=== PATIENT | female | born 1960 | race Caucasian/White ===

== ENCOUNTER 2017-04-30 20:55 | Emergency (ER) | payer OTHER ==
[2017-04-30 22:28] VITALS: BP 113/57
[2017-04-30] MEDS ORDERED: Benzonatate CAP* 100 MG PO ONE (23:03)
[2017-04-30] MEDS ORDERED: DOXYcycline CAP(*) 100 MG PO ONE (23:03)
--- NOTE | 2017-04-30 23:09 | UC ---
Respiratory Complaint HPI - HPI Summary HPI Summary: 57 y/o female presents to the urgent care c/o persistent cough for the past 3 weeks. She reports her symptoms started with her seasonal allergies with nasal congestion and postnasal drip, but then the cough started and now is producing a green phlegm, has Mild SOB and every time she coughs she urinates. She has only use her albuterol inhaler to alleviate symptoms. PT denies fever, chest pain, N/V/D. - History of Current Complaint Chief Complaint: UCRespiratory Stated Complaint: CHEST CONGESTION, COUGH Time Seen by Provider: 04/30/17 22:44 Hx Obtained From: Patient Hx Last Menstrual Period: years ago. ?: No Onset/Duration: Gradual Onset, Lasting Weeks, Still Present Timing: Intermittent Episodes Severity Initially: Mild Severity Currently: Moderate Pain Intensity: 0 Pain Scale Used: 0-10 Numeric Character: Cough: Productive - with green phlegm Alleviating Factors: Bronchodilator Associated Signs And Symptoms: Positive: Dyspnea, Nasal Congestion. Negative: Fever Related History: Seasonal Allergies - Risk Factors Pulmonary Embolism Risk Factors: Negative Cardiac Risk Factors: Hypertension, Smoking, Diabetes Pseudomonas Risk Factors: Negative Tuberculosis Risk Factors: Negative - Allergies/Home Medications Allergies/Adverse Reactions: Allergies Allergy/AdvReac Type Severity Reaction Status Date / Time Penicillins Allergy Intermediate Rash Verified 04/30/17 22:28 Home Medications: Home Medications Metoprolol Tartrate TAB* [Lopressor TAB*] 25 mg PO DAILY 04/30/17 [History Confirmed 04/30/17] PMH/Surg Hx/FS Hx/Imm Hx Previously Healthy: Yes Endocrine History: Diabetes, Dyslipidemia Cardiovascular History: Hypertension Respiratory History: COPD Psychological History: Anxiety Other History Of: Anticoagulant Therapy - aspirin Negative For: HIV, Hepatitis B, Hepatitis C - Surgical History Surgical History: Yes Surgery Procedure, Year, and Place: BI-LAT CARPEL TUNNEL SURGERY. TUBAL LIGATION. LEFT BREAST MASS REMOVED- benign. B/L SHOULDER SX. R TKA--2017 - Family History Known Family History: Positive: None, Cardiac Disease - parents, Hypertension - mother, Diabetes - mother - Social History Occupation: Unemployed Lives: With Family Alcohol Use: None Substance Use Type: None Smoking Status (MU): Heavy Every Day Tobacco Smoker Type: Cigarettes Amount Used/How Often: ~ 1 ppd Length of Time of Smoking/Using Tobacco: started ~ age 14 Have You Smoked in the Last Year: Yes Review of Systems Constitutional: Negative Skin: Negative Eyes: Negative ENT: Nasal Discharge, Sinus Congestion Respiratory: Shortness Of Breath, Cough - productive with green sputum Cardiovascular: Negative, Palpitations Genitourinary: Negative Motor: Negative Neurovascular: Negative Musculoskeletal: Negative Neurological: Negative Psychological: Negative All Other Systems Reviewed And Are Negative: Yes Physical Exam Triage Information Reviewed: Yes Appearance: Well-Appearing, No Pain Distress, Well-Nourished, Obese Vital Signs: Initial Vital Signs Temp 99.1 F 04/30/17 22:19 Pulse 89 04/30/17 22:19 Resp 20 04/30/17 22:19 BP 113/57 04/30/17 22:19 Pulse Ox 95 04/30/17 22:19 Vital Signs Reviewed: Yes Eyes: Positive: Conjunctiva Clear - PERRLA, EOMI, Fundi grossly normal ENT: Positive: Normal ENT inspection, Hearing grossly normal, Pharynx normal, TMs normal - RT ear canal impacted with cerumen unable to visualize TM. LF TM pearly in color with positive light relfex.. Negative: Tonsillar swelling, Tonsillar exudate Dental Exam: Normal Neck exam: Normal Neck: Positive: Supple, Nontender, No Lymphadenopathy Respiratory Exam: Normal Respiratory: Positive: Chest non-tender, No respiratory distress, No accessory muscle use, Wheezing - B/L wheezing in the upper lung mohr Cardiovascular Exam: Normal Cardiovascular: Positive: RRR, No Murmur, Pulses Normal Abdominal Exam: Normal Abdomen Description: Positive: Nontender, No Organomegaly, Soft. Negative: CVA Tenderness (R), CVA Tenderness (L) Bowel Sounds: Positive: Present Musculoskeletal Exam: Normal Musculoskeletal: Positive: Strength Intact, ROM Intact, No Edema Neurological Exam: Normal Psychological Exam: Normal Skin Exam: Normal UC Diagnostic Evaluation - Laboratory O2 Sat by Pulse Oximetry: 95 Respiratory Course/Dx - Course Course Of Treatment: 57 y/o female presents to the urgent care c/o persistent cough for the past 3 weeks. Pt with HX of COPD. Hx obtained. PE abnormal findings: Respiratory: Positive: Chest non-tender, No respiratory distress, No accessory muscle use, Wheezing - B/L wheezing in the upper lung mohr. Pt decline chest x-ray. Pt given Doxycycline 100mg PO once and tessalon tab 100mg PO at the urgent care since pharmacy is closed. Rx antibiotic for 10 days and advised to take the tessalon tabs and continue using her albuterol inhaler q4hrs prn to alleviate bronchospasm. Increase fluid intake and if symptoms do not improve to f/u with her PCP for furhter evaluation and treatment. Pt understood and agreed. - Differential Dx/Diagnosis Differential Diagnosis/HQI/PQRI: Bronchitis, Exacerbation Of COPD, Lower Resp Infection, Sinusitis, Other - Pharyngitis, sinusitis Provider Diagnoses: COPD exacerbation. - Physician Notification/Consults Discussed Patient Care With: Ramón Patrick - Dr patrick agreed with pt's care and treatment. Discharge - Discharge Plan Condition: Stable Disposition: HOME Prescriptions: Benzonatate CAP* [Tessalon 100 MG CAP*] 100 mg PO TID #21 cap Carbamide Peroxide 6.5% OTIC* [DEBROX 6.5% Otic*] 5 drop RIGHT EAR BID #1 bottle DOXYcycline CAP(*) [DOXYcycline 100MG CAP(*)] 100 mg PO BID #20 cap Patient Education Materials: COPD (Chronic Obstructive Pulmonary Disease) (ED) Referrals: Raymundo Vizcaino MD [Primary Care Provider] - 1 Week Additional Instructions: Please take medications as instructed and finish the full course of treatment to avoid recurrent infection. Continue to use the albuterol inhaler q4hrs prns to alleviate broncospasm. If you do not improve or if symptoms worsen after the course of antibiotics, you should either follow up with your PCP or return to the urgent care for further evaluation and treatment.
== END 2017-04-30 23:16 | disposition home or self-care (01) ==
LOC: UCCORT 20:55
DX: J44.1 Chronic obstructive pulmonary disease with (acute) exacerbation (principal); E11.9 Type 2 diabetes mellitus without complications; I10 Essential (primary) hypertension; E78.5 Hyperlipidemia, unspecified; Z72.0 Tobacco use
CPT/HCPCS: 99212; A9270-GY; G0463

== ENCOUNTER 2017-06-03 09:39 | Emergency (ER) | payer OTHER ==
[2017-06-03 10:14] VITALS: BP 119/67
--- NOTE | 2017-06-03 10:25 | UC ---
Lower Extremity/Ankle HPI - HPI Summary HPI Summary: she was walking on her uneven driveway and stepped and felt sudden pain in the middle of her foot. She did not fall. this was last night. - History of Current Complaint Chief Complaint: UCLowerExtremity Stated Complaint: RIGHT FOOT INJURY Time Seen by Provider: 06/03/17 10:13 Hx Obtained From: Patient Hx Last Menstrual Period: years ago. Onset/Duration: Sudden Onset, Lasting Days Severity Initially: Moderate Severity Currently: Moderate Aggravating Factor(s): Standing, Ambulation Alleviating Factor(s): Rest, Elevation Able to Bear Weight: No - Risk Factors Gout Risk Factors: Age Over 40 - Allergies/Home Medications Allergies/Adverse Reactions: Allergies Allergy/AdvReac Type Severity Reaction Status Date / Time Penicillins Allergy Intermediate Rash Verified 06/03/17 10:04 Home Medications: Home Medications Ibuprofen TAB* [Motrin TAB* 800 MG] 800 mg PO Q6H 06/03/17 [History Confirmed ] PMH/Surg Hx/FS Hx/Imm Hx Previously Healthy: No - arthritis. Other History Of: Anticoagulant Therapy - aspirin Negative For: HIV, Hepatitis B, Hepatitis C - Surgical History Surgical History: Yes Surgery Procedure, Year, and Place: BI-LAT CARPEL TUNNEL SURGERY. TUBAL LIGATION. LEFT BREAST MASS REMOVED- benign. B/L SHOULDER SX. R TKA--2017 - Family History Known Family History: Positive: None, Cardiac Disease - parents, Hypertension - mother, Diabetes - mother - Social History Alcohol Use: None Substance Use Type: None Smoking Status (MU): Heavy Every Day Tobacco Smoker Type: Cigarettes Amount Used/How Often: ~ 1 ppd Length of Time of Smoking/Using Tobacco: started ~ age 14 Have You Smoked in the Last Year: Yes Review of Systems Musculoskeletal: Arthralgia All Other Systems Reviewed And Are Negative: Yes Physical Exam Triage Information Reviewed: Yes Appearance: Well-Appearing, Well-Nourished Vital Signs: Initial Vital Signs Temp 98.9 F 06/03/17 09:59 Pulse 65 06/03/17 09:59 Resp 14 06/03/17 09:59 BP 119/67 06/03/17 09:59 Pulse Ox 97 06/03/17 09:59 Vital Signs Reviewed: Yes Eye Exam: Normal ENT Exam: Normal Neck exam: Normal Respiratory Exam: Normal Cardiovascular Exam: Normal Abdominal Exam: Normal Musculoskeletal Exam: Other - Right foot pain mid metatarsal tenderness without swelling. no ankle tenderness. Neurological Exam: Normal Neurological: Positive: Alert Psychological Exam: Normal Skin Exam: Normal Lower Extremity Course/Dx - Course Course Of Treatment: right foot sprain. no evidence of fracture on x ray. she will use post op shoe and tylenol PRN. - Differential Dx/Diagnosis Provider Diagnoses: right foot injury and sprain. Discharge - Discharge Plan Condition: Good Disposition: HOME Patient Education Materials: Arthralgia (ED) Referrals: Raymundo Vizcaino MD [Primary Care Provider] - If Needed
--- NOTE | 2017-06-03 10:46 | RAD ---
Indication: Plantar side RIGHT foot pain following injury/rolled foot yesterday. Comparison: No relevant prior exams available on the [facility] PACS for comparison. Technique: AP, lateral, and oblique views RIGHT foot. Report: Negative for fracture or dislocation. 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 Small Achilles tendon insertion and plantar fascia origin bone spurs. Mild nonfocal soft tissue swelling. IMPRESSION: Nonfocal soft tissue swelling. Negative for fracture or malalignment. Osteoarthritis.
== END 2017-06-03 11:11 | disposition home or self-care (01) ==
LOC: UCCORT 09:39
DX: S93.601A Unspecified sprain of right foot, initial encounter (principal); X58.XXXA Exposure to other specified factors, initial encounter; Y93.01 Activity, walking, marching and hiking; Y92.412 Parkway as the place of occurrence of the external cause; Z79.82 Long term (current) use of aspirin; Z88.0 Allergy status to penicillin; F17.210 Nicotine dependence, cigarettes, uncomplicated
CPT/HCPCS: 99213; G0463

== ENCOUNTER 2017-12-03 17:24 | Emergency (ER) | payer OTHER ==
[2017-12-03 21:06] VITALS: BP 98/55
[2017-12-03] MEDS ORDERED: Oseltamivir CAP* 75 MG CAP PO ONE (21:26)
--- NOTE | 2017-12-03 21:27 | UC ---
HPI Febrile Illness - HPI Summary HPI Summary: 57 year old female with flu like illness since 0300 today. Onset yesterday with fatigue. woke in the night with nausea and vomiting , diarrhea. Coughing. Fever 103 in the night. Last time she vomited was two hours ago. Tolerating fluids ok now. drinking a lot of fluids. has had body aches as well. (+) exposure to flu at home [ End ] - History of Current Complaint Chief Complaint: UCGeneralIllness Time Seen by Provider: 12/03/17 21:00 Hx Obtained From: Patient Hx Last Menstrual Period: years ago. Pain Intensity: 0 Associated Signs and Symptoms: Arthralgia, Chills, Cough - Allergy/Home Medications Allergies/Adverse Reactions: Allergies Allergy/AdvReac Type Severity Reaction Status Date / Time MS Penicillins [Penicillins] Allergy Intermediate Rash Verified 12/03/17 20:52 Home Medications: Home Medications Acetaminophen TAB* [Tylenol TAB*] 650 mg PO Q4H PRN 12/03/17 [History Confirmed 12/03/17] Hydroxychloroquine TAB* [Plaquenil TAB*] 200 mg PO BID 12/03/17 [History Confirmed 12/03/17] Meloxicam 7.5 mg PO DAILY 12/03/17 [History Confirmed 12/03/17] PMH/Surg Hx/FS Hx/Imm Hx Previously Healthy: Yes Endocrine History: Diabetes Cardiovascular History: Hypertension Other History Of: Anticoagulant Therapy - aspirin Negative For: HIV, Hepatitis B, Hepatitis C - Surgical History Surgical History: Yes Surgery Procedure, Year, and Place: BI-LAT CARPEL TUNNEL SURGERY. TUBAL LIGATION. LEFT BREAST MASS REMOVED- benign. B/L SHOULDER SX. R TKA--2017 - Family History Known Family History: Positive: None, Cardiac Disease - parents, Hypertension - mother, Diabetes - mother - Social History Lives: With Family Alcohol Use: None Substance Use Type: None Smoking Status (MU): Heavy Every Day Tobacco Smoker Type: Cigarettes Amount Used/How Often: ~ 1 ppd Length of Time of Smoking/Using Tobacco: started ~ age 14 Have You Smoked in the Last Year: Yes Household Exposure Type: Cigarettes Review of Systems Constitutional: Fever, Chills, Fatigue ENT: Sore Throat, Nasal Discharge, Sinus Congestion Respiratory: Cough Musculoskeletal: Myalgia Neurological: Headache All Other Systems Reviewed And Are Negative: Yes Physical Exam Triage Information Reviewed: Yes Appearance: Well-Appearing, No Pain Distress, Well-Nourished Vital Signs: Initial Vital Signs Temp 98.7 F 12/03/17 20:58 Pulse 67 12/03/17 20:58 Resp 16 12/03/17 20:58 BP 98/55 12/03/17 20:58 Pulse Ox 95 12/03/17 20:58 Vital Signs Reviewed: Yes Eye Exam: Normal ENT Exam: Normal Dental Exam: Normal Neck exam: Normal Neck: Positive: 1 Respiratory Exam: Normal Cardiovascular Exam: Normal Musculoskeletal Exam: Normal Neurological Exam: Normal Psychological Exam: Normal Skin Exam: Normal Course/Dx - Course Course Of Treatment: flu like sx , immunocompromised and (+) to flu at home -- treat, RTO if any concerns, appears to be well hydrated, MMM. if any vomiting after leaving here or concerns for dehydration to go to ED for potential fluids - Diagnoses Clinic Provider Diagnoses: Flu Discharge - Discharge Plan Condition: Good Disposition: HOME Prescriptions: Benzonatate [TESSALON 200 MG CAP] 200 mg PO TID PRN #20 cap PRN Reason: Cough Oseltamivir CAP* [Tamiflu CAP*] 75 mg PO BID #10 cap Patient Education Materials: Influenza (ED) Forms: *Work Release Referrals: Raymundo Vizcaino MD [Primary Care Provider] - 1 Day
== END 2017-12-03 21:39 | disposition home or self-care (01) ==
LOC: UCCORT 17:24
DX: J11.1 Influenza due to unidentified influenza virus with other respiratory manifestations (principal); Z88.0 Allergy status to penicillin; E11.9 Type 2 diabetes mellitus without complications; I10 Essential (primary) hypertension; Z79.82 Long term (current) use of aspirin; F17.210 Nicotine dependence, cigarettes, uncomplicated
CPT/HCPCS: 87502; 99212; A9270-GY; G0463

== ENCOUNTER 2018-01-06 16:38 | Emergency (ER) | payer OTHER ==
[2018-01-06 17:34] VITALS: BP 108/51
--- NOTE | 2018-01-06 17:44 | UC ---
Skin Complaint HPI - HPI Summary HPI Summary: Pt c/o sudden onset painful erythematous rash with clear vessicles in center to left medial anterior upper arm. Pt states that the rash had clear fluid filled vessicles in center of erythematous area - History of Current Complaint Time Seen by Provider: 01/06/18 17:26 Stated Complaint: SKIN COMPLAINT Hx Obtained From: Patient Hx Last Menstrual Period: years ago. ?: No Onset/Duration: Sudden Onset, Lasting Days, Still Present Skin Exposure Onset/Duration: Days Ago Timing: Constant Onset Severity: Mild Current Severity: Moderate Pain Intensity: 0 Location: Discrete - left upper arm Character: Pain, Redness, Raised Aggravating Factor(s): Touch Alleviating Factor(s): Unknown Associated Signs & Symptoms: Positive: Rash - Allergy/Home Medications Allergies/Adverse Reactions: Allergies Allergy/AdvReac Type Severity Reaction Status Date / Time Penicillins Allergy Intermediate Hives Verified 01/06/18 17:35 Review of Systems Constitutional: Negative Skin: Rash Eyes: Negative ENT: Negative Respiratory: Negative Cardiovascular: Negative Gastrointestinal: Negative Genitourinary: Negative Motor: Negative Neurovascular: Negative Musculoskeletal: Negative Neurological: Negative Psychological: Negative Is Patient Immunocompromised?: No All Other Systems Reviewed And Are Negative: Yes PMH/Surg Hx/FS Hx/Imm Hx Previously Healthy: Yes Other History Of: Anticoagulant Therapy - aspirin Negative For: HIV, Hepatitis B, Hepatitis C - Surgical History Surgical History: Yes Surgery Procedure, Year, and Place: BI-LAT CARPEL TUNNEL SURGERY. TUBAL LIGATION. LEFT BREAST MASS REMOVED- benign. B/L SHOULDER SX. R TKA--2017 - Family History Known Family History: Positive: None, Cardiac Disease - parents, Hypertension - mother, Diabetes - mother - Social History Occupation: Student Lives: With Family Alcohol Use: None Substance Use Type: None Smoking Status (MU): Heavy Every Day Tobacco Smoker Type: Cigarettes Amount Used/How Often: ~ 1 ppd Length of Time of Smoking/Using Tobacco: started ~ age 14 Have You Smoked in the Last Year: Yes Household Exposure Type: Cigarettes Physical Exam Triage Information Reviewed: Yes Appearance: Well-Appearing Vital Signs: Initial Vital Signs Temp 97.6 F 01/06/18 17:29 Pulse 67 01/06/18 17:29 Resp 18 01/06/18 17:29 BP 108/51 01/06/18 17:29 Pulse Ox 96 01/06/18 17:29 Vital Signs Reviewed: Yes Eye Exam: Normal ENT Exam: Normal Respiratory Exam: Normal Cardiovascular Exam: Normal Musculoskeletal Exam: Normal Neurological Exam: Normal Psychological Exam: Normal Skin: Positive: rashes - erythematous circular area, tender to touch, with empty blister sacs Course/Dx - Differential Diagnoses - Skin Complaint Differential Diagnoses: Cellulitis, Contact Dermatitis, Varicella Zoster - Diagnoses Provider Diagnoses: shingles Discharge - Discharge Plan Condition: Stable Disposition: HOME Prescriptions: ValACYclovir (*) [Valtrex 1 GM(*)] 1 gm PO Q8H #21 tab Patient Education Materials: Shingles (ED) Referrals: Raymundo Vizcaino MD [Primary Care Provider] - If Needed
== END 2018-01-06 17:55 | disposition home or self-care (01) ==
LOC: UCCORT 16:38
DX: B02.9 Zoster without complications (principal); Z88.0 Allergy status to penicillin; F17.210 Nicotine dependence, cigarettes, uncomplicated
CPT/HCPCS: 99212; G0463

== ENCOUNTER 2018-08-17 11:44 | Emergency (ER) | payer OTHER ==
--- OUTSIDE RECORDS SUMMARY | 2018-08-17 12:10 | XMS REPORT ---
:1960 External Reference #:[id number] Author Organization [facility] Address [address], [address] [place] [address] Phone [phone] Care Team Providers Name Role Phone Raymundo Vizcaino MD Care Team Information Dental Scheduling Coordinator Unavailable Raymundo Vizcaino MD Primary Care Physician Unavailable Payers Type Date Identification Numbers Payment Provider Subscriber Commercial Policy Number: [id number] [employer] Regina Rowland PayID: [id number] [address] [place] [address] Problems Date Description Provider Status Onset: 10/24/2003 Localized, primary osteoarthritis Active of the pelvic region and thigh Onset: 10/24/2003 Localized, primary osteoarthritis Active Onset: 07/14/2013 Displacement of lumbar Cristian Godinez MD, FACS Active intervertebral disc without myelopathy Onset: 07/14/2013 Disorder of shoulder Cristian Godinez MD, FACS Active Onset: 07/14/2013 Localized, primary osteoarthritis Cristian Godinez MD, FACS Active of the shoulder region Onset: 08/12/2013 Brachial neuritis Cristian Godinez MD, FACS Active Onset: 11/04/2013 Shoulder joint pain Cristian Godinez MD, FACS Active Onset: 11/04/2013 Displacement of cervical Cristian Godinez MD, FACS Active intervertebral disc without myelopathy Onset: 01/27/2014 Arthralgia of the lower leg Cristian Godinez MD, FACS Active Onset: 03/29/2014 Localized, primary osteoarthritis Cristian Godinez MD, FACS Active Onset: 05/18/2014 Full thickness rotator cuff tear Cristian Godinez MD, FACS Active Onset: 11/21/2014 Partial Tear Of Rotator Cuff Raymundo Jacobs D.O. Active Onset: 03/27/2016 Ganglion cyst Uli Morel M.D. Active Onset: 09/10/2016 Low back pain Uli Morel M.D. Active Onset: 02/10/2017 Aftercare following joint Uli Morel M.D. Active replacement surgery Family History Date Family Member(s) Problem(s) Comments Father Stroke Father due to Stroke () Father Heart Disease Father due to Heart Attack () Father Myocardial Infarction Mother Cancer ovarian,cervical Mother due to Cancer () Mother Diabetes First Son due to Brain cancer () First Sister Cancer breast Second Sister Stroke Second Sister Diabetes Grandfather Myocardial Infarction Social History Type Date Description Comments Marital Status Lives With Spouse Lives With Daughter Lives With Grandson Diet Patient follows no dietary restrictions Occupation Unemployed Occupation Student Hand Dominance Right-handed Cigarette Use Current Cigarette Smoker 1 Pack Daily ETOH Use Denies alcohol use Recreational Drug Use Denies Drug Use Daily Caffeine Current Caffeine User Allergies, Adverse Reactions, Alerts Date Description Reaction Status Severity Comments 07/14/2013 Penicillins Urticaria active Medications Medication Date Status Form Strength Qnty SIG Indications Ordering Provider Ibuprofen 10/04 Active Tablets 800mg 90tab 1 tab by Ross, /2014 s anastasia Lorenzo MD three times a day as needed Metformin HCL Active Tablets 1000mg 1 by Unknown /0000 mouth twice daily Atorvastatin Active Tablets 20mg 1 by Unknown Calcium /0000 mouth at night Fentanyl Active Patches 50mcg/HR 1 by Unknown /0000 72HR mouth every 3 days Proair HFA Active Aerosol 2 puffs Unknown /0000 as needed Metoprolol Active Tablets 25mg 1 by Unknown Succinate ER /0000 ER 24HR mouth every day Bupropion HCL ER Active Tablets 300mg 1 by Unknown (XL) /0000 ER 24HR mouth every day Oxycodone HCL Active Capsules 5mg 1-2 po by Unknown /0000 mouth every 6-8 hours as needed. ref # [id number] Biotin Active Capsules 5000mcg 2 tablets Unknown /0000 by mouth daily Alpha-Lopic Acid Active 200mg 1 by Unknown /0000 mouth daily Citalopram Active 1 tablet Unknown Hydrobromide /0000 by mouth daily Lisinopril Active Tablets 5mg 1 by Unknown /0000 mouth every day Hydroxychloroquin Active Tablets 200mg 1 by Unknown e Sulfate /0000 mouth twice a day Meloxicam Active Tablets 7.5mg 1 by Unknown /0000 mouth every day Lasix Active Tablets 40mg 1 by Unknown /0000 mouth every day Gabapentin Active Capsules 300mg Unknown Cyclobenzaprine Active Tablets 10mg Gage, HCL MD Reza Peg 06/13 Hx Solution 240gm 4000m Use day Z12.11 [place] jordani, 3350/ Rec l before Kyree - andrei Gallardo M.D. 10/04 directed. Nabumetone 11/01 Hx Tablets 750mg 60tab take 1 s tablet by Cristian Banuelos, - mouth 2 , FACS 12/05 times day with food Oxycodone-Acetami 08/08 Hx Tablets 5-325mg 8tabs noel Jacobs Raymundo Barber - DLandonOLandon 12/05 Oxycodone/Acetami 06/13 Hx Tablets 5-325mg 45tab 1 po q 4 s hrs prn Cristian Banuelos, - pain , FACS 08/[address] Hx Tablets 81mg Unknown /0000 DR - 08/08 Metoprolol Hx Tablets 100mg Unknown Succinate ER 0000 ER 24HR - 06/05 Metformin HCL Hx Tablets 850mg Unknown - 06/05 Lyrica Hx Capsules 50mg Unknown / - 06/05 Citalopram Hx Tablets 20mg Unknown Hydrobromide /0000 - 06/05 Meloxicam Hx Tablets 7.5mg Unknown - 06/05 Meloxicam Hx Tablets 15mg 30tab 1 po q Unknown / s day c - food 11/01 Lyrica Hx Capsules 200mg 1 tab tid - 07/01 Micardis Hx Tablets 40mg 1/2 tab Unknown /0000 qd Wellbutrin XL Hx Tablets 300mg qd Unknown /0000 ER 24HR - 12/05 Uloric Hx Tablets 40mg po qd Unknown /0000 - 10/04 Atorvastatin Hx Tablets 40mg qd Unknown Calcium /0000 - 08/08 Buspirone HCL / Hx Tablets 5mg 1 po tid Unknown /0000 Fentanyl Hx Patches 50mcg/HR 10uni apply 1 Unknown /0000 72HR ts patch to - anterior 08/08 chest wall every 3 days, be sure to remove old patch. alpha code d Pantoprazole Hx Tablets 40mg 1 tab qd Unknown Sodium /0000 DR - 06/04 Finasteride Hx Tablets Unknown /0000 - 12/04 Hydroxychloroquin Hx Tablets 200mg twice a Unknown e Sulfate /0000 day - 06/04 Bupropion HCL Hx Tablets Unknown /0000 Meloxicam Hx Tablets 15mg Unknown /0000 Telmisartan Hx Tablets 40mg Unknown /0000 Tudorza Pressair Hx Aerosol 400mcg/Ac 1 puff Unknown /0000 t bid - 05/12 Aspirin Hx Tablets 81mg 1 tab qd Unknown /0000 - 12/29 Multivitamins Hx Capsules 1 by Unknown /0000 mouth daily Nabumetone Hx Tablets 750mg 1 tab bid Unknown /0000 Baclofen Hx Tablets 10mg 1/2 tab Unknown /0000 tid - 10/04 Meloxicam Hx Tablets 7.5mg 1 by Unknown /0000 mouth - once a 10/23 day after meals Aspirin Adult Low 00 Hx Tablets 81mg 1 by Unknown Dose /0000 DR mouth every day Hydrochlorothiazi Hx Tablets 12.5mg 1 by Unknown de /0000 mouth - every day 05/19 Medications Administered in Office Medication Date Status Form Strength Qnty SIG Indications Ordering Provider Depomedrol 80 Administered Injection [place], mg 018 Elizabeth S., [facility] Depomedrol 80 Administered Injection [place], mg 018 Elizabeth S., [facility] Depomedrol 80 Administered Injection [place], mg 017 Elizabeth S., [facility] Depomedrol 80 Administered Injection [place], mg 016 Elizabeth S., [facility] Depomedrol 80 Administered Injection [place], mg 014 Elizabeth S., [facility] Depomedrol Administered Injection [place], 40mg/1cc 014 Cristian Banuelos MD, FACS Vital Signs Date Vital Result Comment 07/08/2018 BP Systolic 142 mmHg BP Diastolic 84 mmHg Body Temperature 98.0 F Heart Rate 83 /min Respiratory Rate 16 /min Height 62 inches 5'2" Weight 212.00 lb BMI (Body Mass Index) 38.8 kg/m2 BSA (Body Surface Area) 1.96 m2 [place] body weight in kilograms 50 O2 % BldC Oximetry 91 % room air Pain Level 9 07/01/2018 BP Systolic 106 mmHg BP Diastolic 66 mmHg Body Temperature 98.4 F Heart Rate 82 /min Height 61 inches 5'1" Weight 213.00 lb BMI (Body Mass Index) 40.2 kg/m2 BSA (Body Surface Area) 1.94 m2 [place] body weight in kilograms 48 O2 % BldC Oximetry 90 % Pain Level 7 06/23/2018 BP Systolic Sitting Left Arm 124 mmHg BP Diastolic Sitting Left Arm 68 mmHg Body Temperature 98.7 F Heart Rate 78 /min Respiratory Rate 17 /min Height 61 inches 5'1" [place] body weight in kilograms 48 O2 % BldC Oximetry 97 % 06/10/2018 BP Systolic Sitting Left Arm 85 mmHg BP Diastolic Sitting Left Arm 50 mmHg Body Temperature 96.1 F Heart Rate 64 /min Height 61 inches 5'1" Weight 216.00 lb BMI (Body Mass Index) 40.8 kg/m2 BSA (Body Surface Area) 1.95 m2 [place] body weight in kilograms 48 O2 % BldC Oximetry 98 % 05/19/2018 BP Systolic Sitting Left Arm 113 mmHg BP Diastolic Sitting Left Arm 74 mmHg Body Temperature 97.6 F Heart Rate 70 /min Respiratory Rate 17 /min Height 61 inches 5'1" Weight 213.00 lb BMI (Body Mass Index) 40.2 kg/m2 BSA (Body Surface Area) 1.94 m2 [place] body weight in kilograms 48 O2 % BldC Oximetry 95 % 04/23/2018 BP Systolic Sitting Left Arm 134 mmHg BP Diastolic Sitting Left Arm 80 mmHg Body Temperature 97.2 F Heart Rate 64 /min Respiratory Rate 18 /min Height 61 inches 5'1" Weight 216.00 lb BMI (Body Mass Index) 40.8 kg/m2 BSA (Body Surface Area) 1.95 m2 [place] body weight in kilograms 48 O2 % BldC Oximetry 100 % 11/19/2017 BP Systolic 110 mmHg BP Diastolic 69 mmHg Body Temperature 96.7 F Heart Rate 74 /min Respiratory Rate 14 /min Height 61 inches 5'1" Weight 214.00 lb BMI (Body Mass Index) 40.4 kg/m2 BSA (Body Surface Area) 1.94 m2 [place] body weight in kilograms 48 11/06/2016 BP Systolic Sitting Left Arm 114 mmHg BP Diastolic Sitting Left Arm 74 mmHg Heart Rate 66 /min Height 61.5 inches 5'1.50" Weight 203.00 lb BMI (Body Mass Index) 37.7 kg/m2 BSA (Body Surface Area) 1.91 m2 [place] body weight in kilograms 49 06/04/2016 BP Systolic Sitting Right Arm 120 mmHg BP Diastolic Sitting Right Arm 70 mmHg Heart Rate 58 /min Height 62.5 inches 5'2.50" Weight 198.00 lb BMI (Body Mass Index) 35.6 kg/m2 BSA (Body Surface Area) 1.91 m2 [place] body weight in kilograms 51 06/13/2015 Heart Rate 65 /min Respiratory Rate 16 /min Height 61 inches 5'1" Weight 184.00 lb BMI (Body Mass Index) 34.8 kg/m2 BSA (Body Surface Area) 1.82 m2 12/05/2014 BP Systolic Sitting Left Arm 108 mmHg BP Diastolic Sitting Left Arm 54 mmHg Height 62 inches 5'2" Weight 196.12 lb BMI (Body Mass Index) 35.9 kg/m2 BSA (Body Surface Area) 1.90 m2 05/30/2014 BP Systolic Sitting Left Arm 118 mmHg BP Diastolic Sitting Left Arm 74 mmHg Height 62 inches 5'2" Weight 225.00 lb BMI (Body Mass Index) 41.1 kg/m2 BSA (Body Surface Area) 2.01 m2 07/14/2013 BP Systolic Sitting Right Arm 104 mmHg BP Diastolic Sitting Right Arm 66 mmHg Height 62.75 inches 5'2.75" Weight 219.00 lb BMI (Body Mass Index) 39.1 kg/m2 BSA (Body Surface Area) 2.00 m2 06/20/2008 Height 63 inches 5'3" Weight 248.00 lb 11/24/2000 Height 63 inches 5'3" Weight 221.00 lb Results Test Date Test Result H/L Range Note Laboratory test finding 06/19/2018 Hematocrit 32.5 % Low 36.0-46.1 1 CBC 06/19/2018 White Blood Count 9.8 K/uL 3.1-10.7 1 Red Blood Count 3.89 M/uL Low 3.90-5.40 1 Hemoglobin 11.4 gm/dL Low 11.6-15.8 1 Hematocrit 33.9 % Low 36.0-46.1 1 Mean Cell Volume 87.1 fl 80.9-99.0 1 Mean Corpuscular HGB 29.3 pg 25.9-32.7 1 Mean Corpuscular HGB Conc 33.6 g/dL 30.8-34.3 1 Platelet Count 270 K/uL 155-360 1 Red Cell Distri Width %CV 13.9 % 11.7-14.4 1 Mean Platelet Volume 10.0 fL 8.9-12.4 1 Basic Metabolic Panel 06/19/2018 Glucose 131 mg/dL High 74-106 1 BUN 10 mg/dL 7-18 1 Creatinine 0.6 mg/dL 0.6-1.3 1 Glom Filtration Rate, Estimate >60 mL/min >60 1 If >60 mL/min >60 1, 2 BUN/Creat 16.6 ratio 1 Sodium 140 mmol/L 136-145 1 Potassium 4.0 mmol/L 3.5-5.1 1 Chloride 107 mmol/L 98-107 1 Carbon Dioxide 27 mmol/L 21-32 1 Anion Gap 6 mEq/L Low 8-16 1 Calcium 8.5 mg/dL 8.5-10.1 1 Laboratory test finding 06/19/2018 Magnesium 2.1 mg/dL 1.8-2.4 1 Laboratory test finding 06/18/2018 Hematocrit 32.9 % Low 36.0-46.1 1 Laboratory test finding 06/18/2018 Hematocrit 32.9 % Low 36.0-46.1 1 CBC 06/18/2018 White Blood Count 9.2 K/uL 3.1-10.7 1 Red Blood Count 3.82 M/uL Low 3.90-5.40 1 Hemoglobin 11.2 gm/dL Low 11.6-15.8 1 Hematocrit 33.7 % Low 36.0-46.1 1 Mean Cell Volume 88.2 fl 80.9-99.0 1 Mean Corpuscular HGB 29.3 pg 25.9-32.7 1 Mean Corpuscular HGB Conc 33.2 g/dL 30.8-34.3 1 Platelet Count 224 K/uL 155-360 1 Red Cell Distri Width %CV 14.1 % 11.7-14.4 1 Mean Platelet Volume 9.8 fL 8.9-12.4 1 Laboratory test finding 06/18/2018 Magnesium 2.1 mg/dL 1.8-2.4 1, 3 Glycohemoglobin A1c 06/18/2018 Glycohemoglobin (A1c) 6.1 % 4.2-6.3 1, 4 eAG 128 mg/dL 1 Basic Metabolic Panel 06/17/2018 Glucose 106 mg/dL 74-106 5 BUN 15 mg/dL 7-18 5 Creatinine 0.6 mg/dL 0.6-1.3 5 Glom Filtration Rate, Estimate >60 mL/min >60 5 If >60 mL/min >60 5, 6 BUN/Creat 25.0 ratio 5 Sodium 143 mmol/L 136-145 5 Potassium 4.3 mmol/L 3.5-5.1 5 Chloride 108 mmol/L High 98-107 5 Carbon Dioxide 28 mmol/L 21-32 5 Anion Gap 7 mEq/L Low 8-16 5 Calcium 8.4 mg/dL Low 8.5-10.1 5 Laboratory test finding 06/17/2018 Hematocrit 35.2 % Low 36.0-46.1 7 Laboratory test finding 11/20/2016 Glucose,Bedside 97 mg/dL 70-110 8, 9 Hemoglobin/Hematocrit 11/20/2016 Hemoglobin 9.7 gm/dL Low 11.6-15.8 8 Hematocrit 30.5 % Low 36.0-46.1 8 Laboratory test finding 11/19/2016 Glucose,Bedside 132 mg/dL High 70-110 8, 10 Laboratory test finding 11/19/2016 Glucose,Bedside 100 mg/dL 70-110 8, 11 Type And Screen 11/12/2016 Patient Blood Type B POS 12 Antibody Screen Negative Negative 12 CBC 11/12/2016 White Blood Count 8.4 K/uL 3.1-10.7 12 Red Blood Count 4.61 M/uL 3.90-5.40 12 Hemoglobin 12.8 gm/dL 11.6-15.8 12 Hematocrit 39.6 % 36.0-46.1 12 Mean Cell Volume 85.9 fl 80.9-99.0 12 Mean Corpuscular HGB 27.8 pg 25.9-32.7 12 Mean Corpuscular HGB Conc 32.3 g/dL 30.8-34.3 12 Platelet Count 268 K/uL 155-360 12 Red Cell Distri Width %CV 15.3 % High 11.7-14.4 12 Mean Platelet Volume 11.0 fL 8.9-12.4 12 Comprehensive Metabolic Panel 11/12/2016 Glucose 88 mg/dL 74-106 12 BUN 13 mg/dL 7-18 12 Creatinine 0.7 mg/dL 0.6-1.3 12 Glom Filtration Rate, Estimate >60 mL/min >60 12 If >60 mL/min >60 12, 13 BUN/Creat 18.5 ratio 12 Sodium 142 mmol/L 136-145 12 Potassium 4.3 mmol/L 3.5-5.1 12 Chloride 106 mmol/L 98-107 12 Carbon Dioxide 28 mmol/L 21-32 12 Anion Gap 8 mEq/L 8-16 12 Calcium 9.0 mg/dL 8.5-10.1 12 Total Protein 7.4 g/dL 6.4-8.2 12 Albumin 3.8 g/dL 3.4-5.0 12 Globulin 3.6 g/dL 1.9-4.3 12 Alb/Glob 1.1 ratio 12 Bilirubin,Total 0.4 mg/dL 0.2-1.0 12 Sgot/Ast 9 U/L Low 15-37 12, 14 SGPT/Alt 20 U/L 12-78 12 Alkaline Phosphatase 62 U/L 45-117 12 Laboratory test finding 11/06/2016 MRSA Screen NO METHICILLIN R <SEE 15 , 16 NOTE> Basic Metabolic Panel 08/03/2015 Glucose 80 mg/dL 74-106 BUN 17 mg/dL 7-18 Creatinine 1.0 mg/dL 0.6-1.3 Glom Filtration Rate, Estimate >60 mL/min >60 If >60 mL/min >60 17 BUN/Creat 17.0 ratio Sodium 141 mmol/L 136-145 Potassium 4.6 mmol/L 3.5-5.1 Chloride 106 mmol/L 98-107 Carbon Dioxide 30 mmol/L 21-32 Anion Gap 5 mEq/L Low 8-16 Calcium 9.4 mg/dL 8.5-10.1 Xray 08/03/2015 CT Abdomen & wnl x oa spine Pelvis,W & W/O Contrast Laboratory test finding 06/15/2015 Polyp Colon And/Or ta x 2 18 Rectum Laboratory test finding 04/18/2015 MRSA Screen See Note 19 Comprehensive Metabolic 08/11/2013 Glucose 123 mg/dL High 76-115 Panel BUN 11 mg/dL 5-23 Creatinine 0.6 mg/dL 0.5-1.4 Glom Filtration Rate, Estimate >60 mL/min >60 If >60 mL/min >60 20 BUN/Creat 18.3 ratio Sodium 141 mmol/L 136-145 Potassium 3.8 mmol/L 3.5-5.1 Chloride 103 mmol/L 98-107 Carbon Dioxide 28 mEq/L 18-29 Anion Gap 14 mEq/L 8-16 Calcium 9.5 mg/dL 8.5-10.1 Total Protein 8.0 g/dL 6.3-8.0 Albumin 4.3 g/dL 3.5-5.0 Globulin 3.7 g/dL 1.9-4.3 Alb/Glob 1.2 ratio Bilirubin,Total 0.4 mg/dL 0.2-1.2 Sgot/Ast 11 U/L Low 16-40 SGPT/Alt 24 U/L Low 30-65 Alkaline Phosphatase 87 U/L 50-136 LDL Cholesterol Profile 08/11/2013 Cholesterol 178 mg/dL 120-200 Triglycerides 308 mg/dL High 16-231 HDL Cholesterol 32 mg/dL 29-83 LDL-Cholesterol 84 mg/dL 62-185 Laboratory test finding 08/11/2013 Microalbumin,Random Urine < 5.0 mg/L 0.0-18.5 Glycohemoglobin A1c 08/11/2013 Glycohemoglobin (A1c) 5.9 % 4.8-6.0 21 eAG 123 mg/dL Arthritis Panel([place]) 08/11/2013 Sedimentation Rate 5 mm/hr 0-30 Rheumatoid Factor Screen NEGATIVE Negative Uric Acid 6.0 mg/dL 2.1-7.4 Antinuclear Antibodies, Ifa 08/11/2013 Antinuclear Antibodies, See patterns . 22 Ifa Speckled Pattern 1:80 . Note See Note 23 CBC W/Automated Diff 08/11/2013 White Blood Count 13.9 K/uL High 3.1-10.7 Red Blood Count 4.93 M/uL 3.90-5.40 Hemoglobin 15.0 gm/dL 11.6-15.8 Hematocrit 42.0 % 36.0-46.1 Mean Cell Volume 85.2 fl 80.9-99.0 Mean Corpuscular HGB 30.4 pg 25.9-32.7 Mean Corpuscular HGB Conc 35.7 g/dL High 30.8-34.3 Platelet Count 368 K/uL High 155-360 Red Cell Distri Width SD 38.8 fl 3-47 Red Cell Distri Width %CV 12.7 % 11.7-14.4 Mean Platelet Volume 9.8 fL 8.9-12.4 Neut% 64.6 % 40.4-72.8 Lymph % 27.1 % 17.0-46.1 [place] % 5.1 % 4.3-13.2 Eo% 2.3 % 0.0-6.6 Bas% 0.9 % 0.0-1.1 Neut# 8.95 K/uL High 1.0-7.0 Lymph # 3.76 K/uL High 0.8-3.4 [place] # 0.70 K/uL 0.3-0.9 Eos # 0.32 K/uL 0.0-0.5 Baso # 0.13 K/uL High 0.0-0.1 1 KINA AUTH 06/18 ABHILASH 2 Note: Persistent reduction for 3 months or more in an eGFR <60 mL/min/1.73 m2 defines CKD. Patients with eGFR values >/=60 mL/min/1.73 m2 may also have CKD if evidence of persistent proteinuria is present. The original MDRD equation for estimated GFR is not valid for patients less than 18 years of age. Additional information may be found at www.kdoqi.org. 3 OK To Combine Draws Per RN 4 Elevated levels of HbA1c suggest the need for more aggressive treatment of glycemia. The [place] [employer] recommends that a primary goal of therapy should be a HbA1c of <7% and that physicians should re-evaluate the treatment regimen in patients with HbA1c values consistently >8%. 5 SEVERE OA RIGHT KNEE 57464 6 Note: Persistent reduction for 3 months or more in an eGFR <60 mL/min/1.73 m2 defines CKD. Patients with eGFR values >/=60 mL/min/1.73 m2 may also have CKD if evidence of persistent proteinuria is present. The original MDRD equation for estimated GFR is not valid for patients less than 18 years of age. Additional information may be found at www.kdoqi.org. 7 KNEE REPLACEMENT 8 LEFT KNEE DJD 9 Charting This Result 10 Charting This Result Sliding Scale 11 Charting This Result Sliding Scale 12 08:45 SS 11/17 89286 M17.12 RESCHEDULED 13 Note: Persistent reduction for 3 months or more in an eGFR <60 mL/min/1.73 m2 defines CKD. Patients with eGFR values >/=60 mL/min/1.73 m2 may also have CKD if evidence of persistent proteinuria is present. The original MDRD equation for estimated GFR is not valid for patients less than 18 years of age. Additional information may be found at www.kdoqi.org. 14 Values below the stated reference ranges of AST and ALT can be seen in normal populations. Clinical correlation is suggested. 15 M17.12 16 NO METHICILLIN RESISTANT STAPHYLOCOCCUS AUREUS ISOLATED. 17 Note: Persistent reduction for 3 months or more in an eGFR <60 mL/min/1.73 m2 defines CKD. Patients with eGFR values >/=60 mL/min/1.73 m2 may also have CKD if evidence of persistent proteinuria is present. The original MDRD equation for estimated GFR is not valid for patients less than 18 years of age. Additional information may be found at www.kdoqi.org. 18 OPERATION/PROCEDURE Colonoscopy; polypectomy DIAGNOSIS: PART 1: "TRANSVERSE @ 110 CM., BIOPSY": - TUBULAR ADENOMA. - NO HIGH GRADE DYSPLASIA OR MALIGNANCY. PART 2: "COLON, @ 60, BIOPSY": - HYPERPLASTIC POLYP. PART 3: "COLON, @ 40 CM., BIOPSY": - TUBULAR ADENOMA. - NO HIGH GRADE DYSPLASIA OR MALIGNANCY. - CAUTERIZED MARGIN OF RESECTION NEGATIVE FOR ADENOMATOUS CHANGE. PART 4: "COLON, @ 30 CM., BIOPSY": - HYPERPLASTIC POLYP. Adrien 1155 GROSS Part 1; Received in formalin properly labeled with the patient's name and accession number. The specimen is designated "TRANSVERSE POLYP @ 110 CM." and consists of multiple pieces of girard soft rubbery tissue measuring 0.6 x 0.4 x 0.2 cm. The specimen is submitted entirely in a single cassette. Part 2; Received in formalin properly labeled with the patient's name and accession number. The specimen is designated "POLYP @ 60 CM." and consists of multiple pieces of girard soft rubbery tissue measuring 1.0 x 0.6 x 0.2 cm. The specimen is submitted entirely in a single cassette. Part 3; Received in formalin properly labeled with the patient's name and accession number. The specimen is designated "POLYP @ 40 CM." and consists of a single piece of pink tinged rubbery tissue measuring 1.2 x 0.6 x 0.6 cm. The specimen is bisected and submitted entirely in a single cassette. GROSS (Continued) Part 4; Received in formalin properly labeled with the patient's name and accession number. The specimen is designated "POLYP @ 30 CM." and consists of a single piece of girard soft rubbery tissue measuring 0.4 x 0.2 x 0.2 cm. The specimen is submitted entirely in a single cassette. CC/asia PRE OPERATIVE DIAGNOSIS Screening REVIEW CODE CODE: I Signed Electronically signed Fermin SAAVEDRA MD [id number] CULTURE IN PROGRESS 20 Note: Persistent reduction for 3 months or more in an eGFR <60 mL/min/1.73 m2 defines CKD. Patients with eGFR values >/=60 mL/min/1.73 m2 may also have CKD if evidence of persistent proteinuria is present. The original MDRD equation for estimated GFR is not valid for patients less than 18 years of age. Additional information may be found at www.kdoqi.org. 21 A1c value between 5.7% and 6.4% is considered at increased risk for diabetes. A1c value greater than 6.5 % is considered essentially diagnostic for Type II diabetes. Current guidelines recommend a treatment goal of <7% for diabetic patients. This method will measure glycosylated hemoglobin variants, HbS, HbG, HbH, HbWayne, HbC, HbE, etc. Other hemoglobin- opathies may give incorrect results with this test. 22 Negative <1:80 Borderline 1:80 Positive >1:80 23 A positive DOMINGO result may occur in healthy individuals or be associated with a variety of diseases. See interpre- tation below: Pattern Antigen Detected Suggested Disease Association Homogeneous DNA(ds,ss,), High titers - SLE (Smooth) Histone Speckled Sm, FIELD ADJUSTER, SCL-70, SLE,MCTD,Scleroderma,Sjogrens SS-A/SS-B Nucleolar SCL-70, PM-1/SCL High titers Scleroderma Poly- myositis/Scleroderma Overlap Centromere Centromere PSS w/Crest syndrome variable Performed at: RN - [facility] [address] [id number] Transport Truck Driver: Sondra Simpson MD, Phone: [phone] Procedures Date CPT Code Description Status 06/17/2018 29464 Total Knee Arthroplasty medial&lateral compartments Completed w/wo christianson res 06/17/2018 22702 Total Knee Arthroplasty medial&lateral compartments Completed w/wo christianson res 04/23/2018 66101 Radiology, Knee 3 Views Completed 04/23/2018 Asp./Injection major joint Completed 11/19/2017 58199 Radiology, Knee 3 Views Completed 11/19/2017 Asp./Injection major joint Completed 05/13/2017 Asp./Injection major joint Completed 05/13/2017 Asp./Injection major joint Completed 05/12/2017 13664 Radiology, Knee 3 Views Completed 05/12/2017 08602 Radiology, Shoulder: Two Views (Sso) Completed 05/12/2017 Asp./Injection major joint Completed 05/12/2017 Asp./Injection major joint Completed 01/21/2017 Asp./Injection major joint Completed 12/03/2016 42704 Radiology, Knee 3 Views Completed 11/17/2016 54771 Total Knee Arthroplasty medial&lateral compartments Completed w/wo christianson res 11/17/2016 59688 Total Knee Arthroplasty medial&lateral compartments Completed w/wo christianson res 11/17/2016 76455 Total Knee Arthroplasty medial&lateral compartments Completed w/wo christianson res 10/23/2016 Asp./Injection major joint Completed 09/10/2016 54914 Radiology, L-S Spine 2 Or 3 Views Completed 07/14/2016 Asp./Injection major joint Completed 06/04/2016 Asp./Injection major joint Completed 04/10/2016 Asp./Injection major joint Completed 03/27/2016 Aspiration/inject ganlion cyst any location Completed 12/17/2015 Asp./Injection major joint Completed 11/15/2015 Asp./Injection major joint Completed 11/15/2015 48424 Radiology, Knee 3 Views Completed 10/04/2015 13272 Radiology, Knee 3 Views Completed 10/04/2015 46930 Asp./Injection major joint Completed 06/15/2015 32451 Colonoscopy With Polypectomy Completed 02/07/201527869 Asp./Injection major joint Completed 12/07/2014 14190 Anesthesia, Shoulder Surgery Open/Surg Arthroscopic Completed Procedures 12/07/2014 60953 Decompression subacromial space w/partial acromioplasty Completed w/wo corc 12/07/2014 50275 Arthroscopy with rotator cuff repair Completed 12/07/2014 42864 Biceps Tenodesis Completed 12/07/2014 16785 Injection For Nerve Block, Brachial Plexus Single Completed 12/07/2014 20688 Ultrasound Guide For Needle Biopsy Completed 12/06/2014 85315 Radiology, Knee 3 Views Completed 10/10/2014 56278 Radiology, Shoulder: Two Views (Sso) Completed 10/10/2014 32757 Radiology, Shoulder: Two Views (Sso) Completed 10/10/201411580 Asp./Injection major joint Completed 06/08/2014 76251 Ultrasound Guide For Needle Biopsy Completed 06/08/2014 84549 Injection For Nerve Block, Brachial Plexus Single Completed 06/08/2014 21348 Arthroscopy with rotator cuff repair Completed 06/08/2014 62695 Decompression subacromial space w/partial acromioplasty Completed w/wo corc 06/08/2014 70755 Arthoscopy debridement limited Completed 06/08/2014 33252 Tenodesis Biceps Long Tendon Completed 06/08/2014 59533 Anesthesia, Shoulder Surgery Open/Surg Arthroscopic Completed Procedures 03/29/201458106 Asp./Injection major joint Completed 01/27/2014 46834 Radiology, Knee 3 Views Completed 01/27/2014 41347 Radiology, Knee 3 Views Completed 01/17/2014 25 Disability Form Completed 11/04/2013 11069 xray spine cervical min 4 views Completed 07/26/2013 03373 Nerve Conduction 7-8 Studies Completed 07/26/2013 05418 Needle Electromyography Complete, Five Or More Muscles Completed Studied 07/14/2013 20458 Radiology, Shoulder: Two Views (Sso) Completed 06/08/2013 49871 Echocardiogram Complete Completed 06/08/2013 52285 Holter Monitor 24HR Inter/Report Completed 12/19/200893009 Asp./Injection major joint Completed 07/18/2008 Asp./Injection major joint Completed 06/20/2008 Asp./Injection major joint Completed 03/07/2008 60526 EKG Interpretation And Report Only Completed Encounters Type Date Location Provider CPT E/M Dx Office Visit 05/19/2018 10:30[place] [address] M17.11 Office Visit 04/23/2018 10:15a [facility] [place], 6[address]60 M25.561 RPA M17.11 Office Visit 11/19/2017 9:30a [facility] [place], 66844 Z47.1 RPA M75.121 M25.511 Z96.652 Office Visit 05/12/2017 10:00a [facility] Uli Morel M.D. 31289 M25.511 Z47.1 M75.41 M17.11 M17.12 Office Visit 10/23/2016 11:15a [facility] Monroe, 53619 M75.121 RPA M25.511 Office Visit 09/10/2016 9:00a [facility] Uli Morel M.D. 78284 M54.5 M17.12 Office Visit 07/14/2016 2:45p [facility] Uli Morel M.D. 49404 M17.12 Office Visit 06/04/2016 11:15a [facility] Uli Morel M.D. 85333 M17.11 Office Visit 03/27/2016 11:00a [facility] Uli Morel M.D. 63099 M17.12 M67.40 Office Visit 12/31/2015 11:15a [facility] Uli Morel M.D. 13092 M17.12 Office Visit 12/17/2015 11:00a [facility] Uli Morel M.D. 69152 M75.41 M17.12 Office Visit 11/15/2015 9:45a [facility] Uli Morel M.D. 07065 M17.11 Office Visit 10/04/2015 10:30a [facility] Uli Morel M.D. 45018 M17.12 Office Visit 07/19/2015 1:15p [facility] Office Kyree Greenwood 17423 Z12.11 Nuria Gallardo Z86.010 Office Visit 06/13/2015 10:30a [facility] Office Kyree [place]wood 95076 V76.51 Nuria Gallardo 783.21 787.99 V16.41 V16.3 305.1 Office Visit 03/22/2015 9:00a [facility] Uli Morel M.D. 13565 715.16 Office Visit 12/06/2014 9:00a [place], [address] 715.16 FACS 719.46 Office Visit 11/21/2014 9:30a [facility] Raymundo Jacobs D.O. 15568 726.13 726.10 Office Visit 11/01/2014 9:30a [facility] Elizabeth Monroe, 87661 726.10 RPAC 719.41 715.11 Office Visit 10/10/2014 9:30a [facility] Elizabeth Monroe, 50434 726.10 RPAC 719.41 715.11 Office Visit 05/30/2014 10:30a [facility] Raymundo Jacobs D.Emelyn 68500 727.61 715.11 Office Visit 05/25/2014 10:45a [facility] [place], [address] 715.16 FACS Office Visit 05/18/2014 10:45a [facility] [place], [address] 726.2 FACS 715.11 722.0 727.61 Office Visit 05/01/2014 10:15a [facility] [place], [address] 715.16 FACS 726.2 719.41 Office Visit 03/29/2014 9:45a [facility] [place], [address] 715.16 FACS Office Visit 01/27/2014 11:00a [facility] [place], [address] 719.46 FACS 715.15 Office Visit 12/22/2013 10:15a [place], [address] 715.11 FACS 726.2 722.0 723.4 Office Visit 11/16/2013 12:02p [facility] Kaya Garcia M.D. 83329 577.0 [facility] 789.06 Office Visit 11/04/2013 9:45a [facility], [address] 719.41 FACS 715.11 726.2 722.0 723.4 Office Visit 08/12/2013 9:15a [facility], [address] 719.41 FACS 719.44 722.10 726.2 715.11 723.4 Office Visit 07/14/2013 11:00a [place], [address] 722.10 FACS 726.2 715.11 719.41 Plan of Care Future Appointment(s):08/18/2018 9:30 am - Galen Cross MD at [facility] Noschs9711/18/2018 3:00 pm - Elizabeth Monroe, [facility] at [facility] [id number] - Elizabeth Monroe, RPACZ47.1 Aftercare following joint replacement [id number] Presence of left artificial knee ooycdU45.561 Pain in right kneeAllComments:I advised her that the numbness and tingling to the incision is normal after surgery and is due to asensory nerve. The area of numbness and tingling usually shrinks over time but she may have a smallarea that is permanently numb.Her calf is soft and nontender. I do not think she has an issue with a blood clot. She is taking her aspirin as prescribed. She has returned to the fall classes and has been on her feet a lot. She is only three weeks out from surgery. I think she is overdoing it. I suggested she take a break and elevate her leg as often as possible. She also needs to use ice. If at any point things are getting worse and she is concerned about a blood clot I will order avenous Doppler. Otherwise, she will follow up as previously scheduled.
[2018-08-17 12:25] VITALS: BP 134/62
--- NOTE | 2018-08-17 12:46 | UC ---
Hand/Wrist HPI - HPI Summary HPI Summary: right wrist pain x 1 day s/p fall on her right wrist this morning + pain and swelling, + tingling of the right 4th and 5th finger pain is 6 out of 10 , dull, worse with movements , better with ice and rest - History Of Current Complaint Chief Complaint: UCUpperExtremity Stated Complaint: RIGHT WRIST INJURY Time Seen by Provider: 08/17/18 12:20 Hx Obtained From: Patient Hx Last Menstrual Period: n/a Mechanism Of Injury: s/p fall on her right wrist Onset/Duration: Sudden Onset, Lasting Days - 1, Still Present Severity Initially: Moderate Severity Currently: Moderate Pain Intensity: 7 Character Of Pain: Dull, Aching Aggravating Factor(s): Movement, Lifting Alleviating Factor(s): Rest, Ice Associated Signs And Symptoms: Positive: Swelling, Numbness/Tingling. Negative : Redness, Bruising, Fever, Weakness - Allergies/Home Medications Allergies/Adverse Reactions: Allergies Allergy/AdvReac Type Severity Reaction Status Date / Time Penicillins Allergy Intermediate Hives Verified 08/17/18 12:19 Home Medications: Home Medications Gabapentin CAP(*) [Neurontin 300 CAP(*)] 300 mg PO TID 08/17/18 [History Confirmed 08/17/18] PMH/Surg Hx/FS Hx/Imm Hx Endocrine History: Diabetes Cardiovascular History: Cardiac Disease, Hypertension, Myocardial Infarction Respiratory History: COPD, Asthma GI/ History: Gastroesophageal Reflux Other History Of: Anticoagulant Therapy - aspirin Negative For: HIV, Hepatitis B, Hepatitis C - Surgical History Surgical History: Yes Surgery Procedure, Year, and Place: BI-LAT CARPEL TUNNEL SURGERY. TUBAL LIGATION. LEFT BREAST MASS REMOVED- benign. B/L SHOULDER SX. R TKA--2018 - Family History Known Family History: Positive: None, Cardiac Disease - parents, Hypertension - mother, Diabetes - mother - Social History Alcohol Use: None Substance Use Type: None Smoking Status (MU): Heavy Every Day Tobacco Smoker Type: Cigarettes Amount Used/How Often: ~ 1 ppd Length of Time of Smoking/Using Tobacco: started ~ age 14 Have You Smoked in the Last Year: Yes Household Exposure Type: Cigarettes Review of Systems Constitutional: Negative Skin: Negative Eyes: Negative ENT: Negative Respiratory: Negative Is Patient Immunocompromised?: No All Other Systems Reviewed And Are Negative: Yes Physical Exam Triage Information Reviewed: Yes Appearance: Pain Distress, Obese Vital Signs: Initial Vital Signs Temp 98.1 F 08/17/18 12:16 Pulse 76 08/17/18 12:16 Resp 15 08/17/18 12:16 BP 134/62 08/17/18 12:16 Pulse Ox 99 08/17/18 12:16 Vital Signs Reviewed: Yes Eyes: Positive: Conjunctiva Clear ENT: Positive: Normal ENT inspection, Hearing grossly normal, Pharynx normal Neck: Positive: Supple, Nontender, No Lymphadenopathy Respiratory: Positive: Chest non-tender, Lungs clear, Normal breath sounds Cardiovascular: Positive: RRR, No Murmur, Pulses Normal Musculoskeletal: Positive: Other: - right wrist : + mild swelling, tenderness ulnar wrist , limited ROM on flexion and extension, limited strength Diagnostics - Laboratory Diagnostic Studies Completed/Ordered: right wrist xray : FINDINGS: The bones are in normal alignment. No fracture is seen. Joint spaces appear. maintained. IMPRESSION: NO EVIDENCE FOR FRACTURE. IF THE PATIENT'S SYMPTOMS PERSIST RECOMMEND. FOLLOW-UP IMAGING. Hand/Wrist Course/Dx - Differential Dx/Diagnosis Provider Diagnoses: sprain right wrist Discharge - Sign-Out/Discharge Documenting (check all that apply): Patient Departure All imaging exams completed and their final reports reviewed: Yes - Discharge Plan Condition: Stable Disposition: HOME Patient Education Materials: Wrist Sprain (ED) Referrals: Raymundo Vizcaino MD [Primary Care Provider] - 7 Days - Billing Disposition and Condition Condition: STABLE Disposition: Home
--- NOTE | 2018-08-17 12:49 | RAD ---
INDICATION: Right wrist injury. TECHNIQUE: 3 views of the right wrist were obtained. FINDINGS: The bones are in normal alignment. No fracture is seen. Joint spaces appear maintained. IMPRESSION: NO EVIDENCE FOR FRACTURE. IF THE PATIENT'S SYMPTOMS PERSIST RECOMMEND FOLLOW-UP IMAGING.
== END 2018-08-17 13:06 | disposition home or self-care (01) ==
LOC: UCCORT 11:44
DX: S63.501A Unspecified sprain of right wrist, initial encounter (principal); I25.2 Old myocardial infarction; K21.9 Gastro-esophageal reflux disease without esophagitis; E11.9 Type 2 diabetes mellitus without complications; I11.9 Hypertensive heart disease without heart failure; J44.9 Chronic obstructive pulmonary disease, unspecified; F17.210 Nicotine dependence, cigarettes, uncomplicated; W19.XXXA Unspecified fall, initial encounter; Y92.9 Unspecified place or not applicable; Z96.651 Presence of right artificial knee joint; Z79.82 Long term (current) use of aspirin; Z88.0 Allergy status to penicillin
CPT/HCPCS: 99213; G0463

== ENCOUNTER 2020-01-05 13:13 | Emergency (ER) | payer OTHER ==
[2020-01-05 16:07] VITALS: BP 103/55
--- NOTE | 2020-01-05 16:27 | UC ---
Respiratory Complaint HPI - HPI Summary HPI Summary: 59 yo smoker with hx of heart disease/stenting, began feeling unwell yesterday, with onset of fever to 102 and increasing cough today with vomiting x 2 and diarrhea x 2. she was diagnosed and had flu A 2 weeks ago, took Tamiflu. - History of Current Complaint Chief Complaint: UCGeneralIllness Stated Complaint: COUGH/CHEST CONGESTION Time Seen by Provider: 01/05/20 16:17 Hx Obtained From: Patient Onset/Duration: Sudden Onset Timing: Intermittent Episodes Severity Initially: Moderate Severity Currently: Moderate Pain Intensity: 7 Character: Cough: Nonproductive Aggravating Factors: Exertion, Deep Breaths, Recumbent Position Associated Signs And Symptoms: Positive: Dyspnea, Fever, Wheezing - Risk Factors Pulmonary Embolism Risk Factors: Smoking Cardiac Risk Factors: Hypertension, Prior MO, CAD Pseudomonas Risk Factors: Negative Tuberculosis Risk Factors: Negative - Allergies/Home Medications Allergies/Adverse Reactions: Allergies Allergy/AdvReac Type Severity Reaction Status Date / Time Penicillins Allergy Rash Verified 01/05/20 16:07 Home Medications: Home Medications Albuterol inh POWDER (NF) [Proair Respiclick] 2 puff INH QID PRN 01/05/20 [ History Confirmed 01/05/20] Alpha Lipoic Acid 300 mg PO TID 01/05/20 [History Confirmed 01/05/20] Aspirin 81 mg PO DAILY 01/05/20 [History Confirmed 01/05/20] Atorvastatin* [Lipitor*] 40 mg PO 1700 01/05/20 [History Confirmed 01/05/20] Cefuroxime 500 MG TAB (NF) [Ceftin 500 MG TAB (NF)] 500 mg PO BID #14 tab [Rx] Citalopram Hydrobromide [Celexa] 20 mg PO DAILY 01/05/20 [History Confirmed 03/21] Cyclobenzaprine TAB* [Flexeril 10 MG TAB*] 10 mg PO BID PRN 01/05/20 [History Confirmed 01/05/20] Furosemide 20 mg PO DAILY 01/05/20 [History Confirmed 01/05/20] Gabapentin [Neurontin] 200 mg PO TID 01/05/20 [History Confirmed 01/05/20] Hydroxychloroquine Sulfate [Plaquenil] 200 mg PO BID 01/05/20 [History Confirmed 01/05/20] Metformin HCl 1,000 mg PO BID 01/05/20 [History Confirmed 01/05/20] Omeprazole 20 mg PO DAILY 01/05/20 [History Confirmed 01/05/20] Oxycodone HCl 5 mg PO QID PRN 01/05/20 [History Confirmed 01/05/20] Phentermine HCl 37.5 mg PO DAILY 01/05/20 [History Confirmed 01/05/20] Prasugrel HCl [Prasugrel] 10 mg PO DAILY 01/05/20 [History Confirmed 01/05/20] Valsartan 40 mg PO DAILY 01/05/20 [History Confirmed 01/05/20] buPROPion HCl [Wellbutrin Sr] 300 mg PO DAILY 01/05/20 [History Confirmed ] PMH/Surg Hx/FS Hx/Imm Hx - Additional Past Medical History Additional PMH: lupus, connective tissue disease. Previously Healthy: No - obese/chronic smoking Cardiovascular History: Cardiac Disease - Surgical History Surgical History: Yes Surgery Procedure, Year, and Place: stent 06/2019, bilateral shoulder and knee surgery, bilateral carpal tunnel, tubal ligation, lumps removed from left breast. - Social History Lives: With Family Alcohol Use: None Substance Use Type: None Smoking Status (MU): Heavy Every Day Tobacco Smoker Household Exposure Type: Cigarettes Review of Systems All Other Systems Reviewed And Are Negative: Yes Constitutional: Positive: Fever, Fatigue Skin: Positive: Negative Eyes: Positive: Negative ENT: Positive: Negative Respiratory: Positive: Shortness Of Breath, Cough Cardiovascular: Negative: Palpitations, Chest Pain Gastrointestinal: Positive: Vomiting, Diarrhea Genitourinary: Positive: Negative Motor: Positive: Negative Neurovascular: Positive: Negative Musculoskeletal: Positive: Negative Neurological/Mental Status: Positive: Negative Psychological: Positive: Negative Is Patient Immunocompromised?: No Physical Exam Triage Information Reviewed: Yes Appearance: No Pain Distress, Obese, Other: - no acute distress. Vital Signs: Initial Vital Signs Temp 97.9 F 01/05/20 16:00 Pulse 79 01/05/20 16:00 Resp 16 01/05/20 16:00 BP 103/55 01/05/20 16:00 Pulse Ox 97 01/05/20 16:00 Eye Exam: Normal ENT: Positive: Pharyngeal erythema, TMs normal Neck: Positive: Supple, Nontender, No Lymphadenopathy Respiratory: Positive: Decreased breath sounds, Crackles - coarse crackles left upper lobe., Wheezing Cardiovascular: Positive: RRR, No Murmur Musculoskeletal Exam: Normal Neurological Exam: Normal Neurological: Positive: Alert, Muscle Tone Normal Psychological Exam: Normal Skin Exam: Normal Diagnostics - Laboratory Lab Results: influenza A and B negative. - Radiology No standard instances Radiology Interpretation Completed By: Radiologist - Chest xray per Dr. Delvalle: no active disease. Respiratory Course/Dx - Course Course Of Treatment: Discussed that typically with the level of cough and congestion which she has, with continued smoking, she take antibiotics. Reaction to pcn is finger tingling and swelling. Will rx cephalosporin. - Differential Dx/Diagnosis Differential Diagnosis/HQI/PQRI: Asthma, Bronchitis, Lower Resp Infection, Sinusitis Provider Diagnosis: Bronchitis Discharge ED - Sign-Out/Discharge Documenting (check all that apply): Patient Departure All imaging exams completed and their final reports reviewed: Yes - Discharge Plan Condition: Stable Disposition: HOME Prescriptions: Cefuroxime 500 MG TAB (NF) [Ceftin 500 MG TAB (NF)] 500 mg PO BID #14 tab Patient Education Materials: Acute Bronchitis (ED) Forms: *School Release Referrals: Aamir Mitchell MD [Primary Care Provider] - Additional Instructions: Take the full course of antibiotics. Continue rest adn high intake of fluids. Please seek and emergency room evaluation if you have increasing shortness of breath or chest pain. - Billing Disposition and Condition Condition: STABLE Disposition: Home
[2020-01-05 16:48] LABS: Influenza A Molecular Negative (Negative); Influenza B Molecular Negative (Negative)
== END 2020-01-05 17:53 | disposition home or self-care (01) ==
LOC: UCCORT 13:13 → MERGE 13:13 → UCCORT 17:53
DX: J40 Bronchitis, not specified as acute or chronic (principal); R53.83 Other fatigue; R11.10 Vomiting, unspecified; R19.7 Diarrhea, unspecified; I51.9 Heart disease, unspecified; Z88.0 Allergy status to penicillin; F17.210 Nicotine dependence, cigarettes, uncomplicated; Z79.82 Long term (current) use of aspirin
CPT/HCPCS: 71046; 99202; G0463